=== PATIENT | male | born 1985 | race Caucasian/White ===

== ENCOUNTER 2017-05-01 20:54 | Emergency (ER) | payer OTHER ==
[2017-05-01 20:58] VITALS: BP 128/69; PULSE 73; TEMP 98.1; BMI 27.9
--- NOTE | 2017-05-01 21:27 | PDOC ---
History of Present Illness - History of Present Illness Initial Comments: 05/01/17 21:36 32 y/o M with no PMH presents to the ED with a right foot injury today around 2 pm. Patient was climbing a ladder about 7 steps high when he fell off and landed on his right foot. He reports associated pain and swelling. He has been ambulating, but with pain. Denies numbness, tingling. Denies any other injuries. Denies any other complaints. PAST MEDICAL HISTORY: no significant history PAST SURGICAL HISTORY: no significant history FAMILY HISTORY: no pertinent history SOCIAL HISTORY: Pt lives with family and is employed. MEDICATIONS: reviewed ALLERGIES: As per nursing notes Review of Systems: General: No fevers or chills, no weakness, no weight loss HEENT: No change in vision. No sore throat,. No ear pain CardioVascular: No chest pain or shortness of breath Respiratory: No cough, or wheezing. Gastrointestinal: no nausea, vomiting, diarrhea or constipation, No rectal bleeding Genitourinary: No dysuria, hematuria, or frequency Musculoskeletal: (+) right foot pain and swelling. Neurologic: No headache, vertigo, dizziness or loss of consciousness Psychiatric: No depression Skin: No rashes or easy bruising Endocrine: No increased thirst or abnormal weight change Allergic: No skin or latex allergy All other systems reviewed and normal Physical Exam: GENERAL: The patient is awake, alert, and fully oriented, in no acute distress. HEAD: Normal with no signs of trauma. EYES: Pupils equal, round and reactive to light, extraocular movements intact, sclera anicteric, conjunctiva clear. EXTREMITIES: Tenderness, swelling and ecchymosis of lateral portion of the right foot. No tenderness on palpation of calcaneus, medial foot, toes or ankle. NEUROLOGICAL: Normal speech, normal gait. PSYCH: Normal mood, normal affect. SKIN: Warm, Dry, normal turgor, no rashes or lesions noted. <Mady Kaye - Last Filed: 05/01/17 21:36> - General History Source: Patient Exam Limitations: No Limitations - History of Present Illness Initial Comments: 05/01/17 23:38 A portion of this note was documented by scribe services under my direction. I have reviewed the details of the note, within reason, and agree with the documentation. The case summary and management plan written by me. X-ray fracture of the head of the fifth metatarsal Procedure note" splint application A posterior OCL splint was applied to the left foot, ankle, and lower leg Assessment and plan: This is a 32-year-old male who fell several steps down a ladder landing on the right foot. Patient has a minimally displaced fracture of the head of the fifth metatarsal. Patient was given a posterior OCL splint and crutches and follow-up with an orthopedist. <Jovani Parada I - Last Filed: 05/01/17 23:40> - General Chief Complaint: Injury Stated Complaint: RT FOOT PAIN Time Seen by Provider: 05/01/17 21:25 Past History <Mady Kaye - Last Filed: 05/01/17 21:36> - Past Medical History Other medical history: DENIES - Suicide/Smoking/Psychosocial Hx Smoking Status: No Smoking History: Never smoked Have you smoked in the past 12 months: No Number of Cigarettes Smoked Daily: 0 Hx Alcohol Use: No Drug/Substance Use Hx: No Substance Use Type: None <Jovani Parada I - Last Filed: 05/01/17 23:40> - Past Medical History Allergies/Adverse Reactions: Allergies Allergy/AdvReac Type Severity Reaction Status Date / Time No Known Allergies Allergy Verified 05/01/17 20:54 Home Medications: Ambulatory Orders Naproxen [Naprosyn -] 500 mg PO TID #21 tablet 05/01/17 *Physical Exam - Vital Signs Last Vital Signs Temp Pulse Resp BP Pulse Ox 98.1 F 73 18 128/69 99 05/01/17 20:55 05/01/17 20:55 05/01/17 20:55 05/01/17 20:55 05/01/17 20:55 <Mady Kaye - Last Filed: 05/01/17 21:36> - Vital Signs Last Vital Signs Temp Pulse Resp BP Pulse Ox 98.1 F 73 18 128/69 99 05/01/17 20:55 05/01/17 20:55 05/01/17 20:55 05/01/17 20:55 05/01/17 20:55 <Jovani Parada I - Last Filed: 05/01/17 23:40> *DC/Admit/Observation/Transfer - Attestations Scribe Attestion: 05/01/17 21:37 Documentation prepared by Mady Kaye, acting as medical physics teacher for Jovani Parada MD. <Mady Kaye - Last Filed: 05/01/17 21:36> - Discharge Dispostion Admit: No <Jovani Parada I - Last Filed: 05/01/17 23:40> Diagnosis at time of Disposition: Foot fracture, right Qualifiers: Encounter type: initial encounter Fracture type: closed Qualified Code(s): S92.901A - Unspecified fracture of right foot, initial encounter for closed fracture - Discharge Dispostion Disposition: HOME Condition at time of disposition: Stable - Prescriptions Prescriptions: Naproxen [Naprosyn -] 500 mg PO TID #21 tablet - Patient Instructions Additional Instructions: Wear the splint and use your crutches for walking until you see the orthopedist. For the pain take naproxen 1 tablet 3 times a day with food don't take on an empty stomach If you need an orthopedist call Dr. Rosales at [phone] in the morning for an appointment. Return to the emergency department immediately with ANY new, persistent or worsening symptoms. Continue any medications as previously prescribed by your physician. You should follow up with your primary doctor as soon as possible regarding today's emergency department visit. . Please make sure your doctor reviews the results of your emergency evaluation. Thank you for coming to the Emergency Department today for your care. It was a pleasure to see you today. Please note that your evaluation is INCOMPLETE until you follow-up with your doctor.
[2017-05-01] MEDS ORDERED: KETOROLAC TROMETHAMINE 60 MG/2 ML VIAL IM ONE (21:53)
[2017-05-01] MEDS ORDERED: IBUPROFEN 400 MG TABLET (FP) PO ONE ×2 (22:25→22:34)
== END 2017-05-01 22:39 | disposition home or self-care (01) ==
LOC: FER 20:54
PROC: 2W3QX1Z Immobilization of Right Lower Leg using Splint (ICD-10-PCS; principal; 2017-05-01)
DX: S92.351A Displaced fracture of fifth metatarsal bone, right foot, initial encounter for closed fracture (principal); W11.XXXA Fall on and from ladder, initial encounter; Y93.89 Activity, other specified; Y92.9 Unspecified place or not applicable
CPT/HCPCS: 73630-TC-RT; 99282-25